=== PATIENT | female | born 1950 | race Caucasian/White ===

== ENCOUNTER 2017-04-17 10:29 | Outpatient (CLI) | payer MEDICARE, BC ==
[2017-04-17 11:52] LABS: Bilirubin Negative (Negative); Blood, Urine Small (Negative); Clarity CLEAR (Clear); Glucose, Urine (Dipstick) Negative (Negative); Leukocyte Negative (Negative); Nitrite Negative (Negative); Protein, Urine (Dipstick) Negative (Neg-Trace); Specific Gravity, Urine 1.009 (1.002-1.036); Urobilinogen 0.2 mg/dL (0.2-1.0)
[2017-04-17 11:54] LABS: Bacteria/HPF None Seen HPF (None Seen); Hyaline Casts/LPF 0-3 HYALINE CAST LPF (0-3 Hyaline); Squamous Epithelial None Seen HPF (0-3); WBC/HPF None Seen HPF (0-3)
[2017-04-17 11:57] LABS: Anion Gap 10 mmol/L (10-20); BUN (Urea Nitrogen) 21 mg/dL (9.8-20.1); Calc. Creatinine Clearance 0 mL/min (70-130); Calcium 9.3 mg/dL (7.8-10.44); Carbon Dioxide 31 mmol/L (23-31); Chloride 105 mmol/L (98-107); Estimated GFR-MDRD 79; Glucose 96 mg/dL (80-115); Potassium 4.6 mmol/L (3.5-5.1); Sodium 141 mmol/L (136-145)
--- NOTE | 2017-04-17 13:46 | ULT ---
BILATERAL RENAL ULTRASOUND: History: Urinary incontinence. FINDINGS: The right kidney measures 11.4 cm in length and the left kidney measures 9.5 cm. No hydronephrosis is seen on either side. There is a 1.3 cm cyst in the inferior pole of the left kidney. The pre void bl adder volume is 156 cc. No significant post void residual is seen in the urinary bladder. IMPRESSION: Left renal cyst. POS: [facility]
== END 2017-04-17 10:30 | disposition home or self-care (01) ==
LOC: ULT 10:29
PROVIDERS: ATTEND Urology
DX: N28.1 Cyst of kidney, acquired (principal); R31.29 Other microscopic hematuria; Z87.442 Personal history of urinary calculi
CPT/HCPCS: 36415; 76770; 80048; 81001; 87086; 88112

== ENCOUNTER 2017-11-06 12:50 | Outpatient (CLI) | payer MEDICARE, BC | END 2017-11-06 12:51 | disposition home or self-care (01) | LOC: BICMAMMO 12:50 | PROVIDERS: ATTEND Internal Medicine | DX: Z12.31 Encounter for screening mammogram for malignant neoplasm of breast (principal); R92.1 Mammographic calcification found on diagnostic imaging of breast; Z80.3 Family history of malignant neoplasm of breast | CPT/HCPCS: 77063; 77067 ==

== ENCOUNTER 2017-11-06 14:43 | Outpatient (CLI) | payer MEDICARE, BC | END 2017-11-06 14:44 | disposition home or self-care (01) | LOC: BICULT 14:43 | PROVIDERS: ATTEND Internal Medicine | DX: R92.8 Other abnormal and inconclusive findings on diagnostic imaging of breast (principal); N60.02 Solitary cyst of left breast ==

== ENCOUNTER 2017-11-12 13:35 | Outpatient (CLI) | payer MEDICARE, BC | END 2017-11-12 13:36 | disposition home or self-care (01) | LOC: BICMAMMO 13:35 | PROVIDERS: ATTEND Internal Medicine | DX: Z13.820 Encounter for screening for osteoporosis (principal); Z78.0 Asymptomatic menopausal state | CPT/HCPCS: 77080 ==

== ENCOUNTER 2017-11-12 14:21 | Outpatient (CLI) | payer MEDICARE, BC | END 2017-11-12 14:22 | disposition home or self-care (01) | LOC: BICRAD 14:21 | PROVIDERS: ATTEND Internal Medicine | DX: I10 Essential (primary) hypertension (principal); M54.9 Dorsalgia, unspecified; M47.896 Other spondylosis, lumbar region; M51.36 Other intervertebral disc degeneration, lumbar region; M47.894 Other spondylosis, thoracic region; M17.0 Bilateral primary osteoarthritis of knee; K30 Functional dyspepsia; E55.9 Vitamin D deficiency, unspecified; I48.91 Unspecified atrial fibrillation; M25.569 Pain in unspecified knee | CPT/HCPCS: 36415; 71046; 72072; 72100; 80053; 80061; 82306; 84439; 84443; 84550; 85025 ==

== ENCOUNTER 2018-08-25 14:56 | Outpatient (CLI) | payer MEDICARE, BC ==
--- NOTE | 2018-08-25 15:43 | RAD ---
RIGHT HIP TWO VIEWS: INDICATIONS: Pain. 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 No fracture or dislocation identified. IMPRESSION: No acute fracture or dislocation, right hip. POS: [facility]
--- NOTE | 2018-08-25 15:44 | RAD ---
LEFT HIP TWO VIEWS: INDICATIONS: Pain. FINDINGS: There is mild osteoarthritis of the left hip without fracture or dislocation. Phleboliths are seen o verlying the pelvis. 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 IMPRESSION: No acute fracture or dislocation, left hip. POS: [facility]
== END 2018-08-25 14:57 | disposition home or self-care (01) ==
LOC: BICRAD 14:56
PROVIDERS: ATTEND Internal Medicine
DX: M19.90 Unspecified osteoarthritis, unspecified site (principal)

== ENCOUNTER 2019-09-24 12:23 | Outpatient (CLI) | payer MEDICARE, BC ==
--- NOTE | 2019-09-24 13:14 | ULT ---
Renal ultrasound: 09/24/2019 COMPARISON: 04/17/2017 HISTORY: Renal cyst TECHNIQUE: Multiplanar grayscale sonographic imaging of the kidneys and urinary bladder. FINDINGS: Urinary bladder unremarkable. Right kidney measures 10.5 x 3.5 x 4.3 cm and demonstrates no mass, hydronephrosis, or stone. Left kidney measures 9.5 x 4.2 x 4.7 cm and demonstrates no hydronephrosis. There is a mid pole left renal cyst measuring 1.7 x 1.6 x 1.6 cm. IMPRESSION: Left renal cyst.
== END 2019-09-24 12:24 | disposition home or self-care (01) ==
LOC: BICULT 12:23
PROVIDERS: ATTEND Urology
DX: N28.1 Cyst of kidney, acquired (principal)
CPT/HCPCS: 76770

== ENCOUNTER 2020-10-13 | Outpatient (CLI) | payer MEDICARE, BC | END 2020-10-13 10:41 | disposition home or self-care (01) | DX: N28.1 Cyst of kidney, acquired (principal) ==

== ENCOUNTER 2021-01-15 21:34 | Inpatient (IN) | payer MEDICARE, BC ==
[2021-01-15] MEDS ORDERED: Ondansetron PF 4 MG/2 ML Vial ONE ×3 (22:02→23:15)
[2021-01-15] MEDS ORDERED: Morphine 4 MG/ML VIAL ONE ×2 (22:02→22:28)
[2021-01-15 22:15] LABS: #Basophils 0.1 thou/uL (0.0-0.2); #Lymphocytes 1.4 thou/uL (1.20-3.40); #Monocytes 0.7 thou/uL (0.11-0.59); %Basophils 0.9 % (0.0-1.0); %Eosinophils 0.4 % (0.0-10.0); %Lymphocytes 19.1 % (21.0-51.0); %Monocytes 9.3 % (0.0-10.0); %Neutrophils 70.3 % (42.0-75.0); Mean Corpuscular HGB CONC 33.3 g/dL (32.0-36.0); Mean Platelet Volume 7.7 fL (7.4-10.4); Platelet Count 288 thou/uL (130-400); RBC Distribution Width 11.2 % (11.5-14.5); Red Blood Cell (RBC) Count 4.65 mill/uL (4.20-5.40); White Blood Cell (WBC) Count 7.1 thou/uL (4.8-10.8)
[2021-01-15 22:24] LABS: Bacteria/HPF None Seen HPF (None Seen); Bilirubin Negative (Negative); Blood, Urine 1+ (Negative); Clarity Extra Turbid (Clear); Glucose, Urine (Dipstick) Normal (Negative); Ketone, Urine Negative (Negative); Leukocyte Negative Leu/uL (Negative); Nitrite Negative (Negative); Protein, Urine (Dipstick) Negative (Neg-Trace); Specific Gravity, Urine 1.016 (1.002-1.036); Squamous Epithelial 0-3 HPF (0-3); Urobilinogen Normal mg/dL (Less than 2); WBC/HPF 0-3 HPF (0-3)
[2021-01-15 22:35] LABS: ALT (SGPT) 13 U/L (8-55); AST (SGOT) 16 U/L (5-34); Albumin 4.2 g/dL (3.4-4.8); Alkaline Phosphatase 47 U/L (40-110); Anion Gap 13 mmol/L (10-20); BUN (Urea Nitrogen) 14 mg/dL (9.8-20.1); Bilirubin, Total 0.5 mg/dL (0.2-1.2); Calc. Creatinine Clearance 0 mL/min (70-130); Calcium 10.7 mg/dL (7.8-10.44); Carbon Dioxide 28 mmol/L (23-31); Chloride 100 mmol/L (98-107); Globulin 3.3 g/dL (2.4-3.5); Glucose 122 mg/dL (83-110); Lipase 11 U/L (8-78); Potassium 3.5 mmol/L (3.5-5.1); Protein, Total 7.5 g/dL (5.8-8.1); Sodium 137 mmol/L (136-145)
[2021-01-15] MEDS ORDERED: Promethazine HCl 25 MG/ML VIAL ONE (23:33)
[2021-01-15] MEDS ORDERED: Ketorolac Tromethamine 30 MG/ML VIAL ONE (23:40)
[2021-01-16 02:04] LABS: Prothrombin Time 13.7 sec (12.0-14.7)
[2021-01-16 02:05] LABS: PTT 29.2 sec (22.9-36.1)
[2021-01-16] MEDS ORDERED: Piperacillin/Tazobactam 4.5 GM in Sodium Chloride 0.9% 100 ML IVPB SCH (02:30)
[2021-01-16 05:45] VITALS: BMI 29.0
[2021-01-16] MEDS ORDERED: Morphine 4 MG/ML VIAL SLOW IVP PRN (05:52)
[2021-01-16] MEDS ORDERED: D5 1/2 NS w/20 mEq KCL 1,000 ML IV SCH (06:00)
[2021-01-16] MEDS ORDERED: Ondansetron PF 4 MG/2 ML Vial IVP PRN (06:00)
[2021-01-16] MEDS ORDERED: Ondansetron ODT 4 MG TAB SL PRN (06:00)
[2021-01-16] MEDS ORDERED: Piperacillin/Tazobactam 3.375 GM in Sodium Chloride 0.9% 100 ML IVPB SCH (08:00)
[2021-01-16] MEDS ORDERED: FLU VACC QS2021-22(65YR UP)/PF 240 MCG/0.7 ML SYRINGE IM ONE (09:00)
[2021-01-16 10:50] LABS: SARS-CoV-2 NAA Rapid Test Not Detected (NotDetected)
[2021-01-16] MEDS ORDERED: Lidocaine 1% w/Epinephrine 1:100K 20 ML VIAL ONE (11:41)
[2021-01-16] MEDS ORDERED: Bupivacaine 0.25% HCL 30 ML VIAL ONE (11:41)
[2021-01-16] MEDS ORDERED: ceFAZolin 2 GM/DEX 5% 100 ML BAG ONE (11:47)
[2021-01-16] MEDS ORDERED: Fentanyl 100 MCG/2 ML VIAL ONE ×2 (12:08→14:31)
[2021-01-16] MEDS ORDERED: Famotidine/PF 20 mg/2ml Vial ONE (12:08)
[2021-01-16] MEDS ORDERED: Glycopyrrolate 0.2 MG/ML 5 ML SYRINGE ONE (12:28)
[2021-01-16] MEDS ORDERED: Lidocaine 1% PF 5 ML VIAL ONE (12:28)
[2021-01-16] MEDS ORDERED: Rocuronium Bromide 10 MG/ML (10ML VIAL) ONE (12:28)
[2021-01-16] MEDS ORDERED: Ondansetron PF 4 MG/2 ML Vial ONE (12:28)
[2021-01-16] MEDS ORDERED: Dexamethasone 20 MG/5 ML VIAL ONE (12:28)
[2021-01-16] MEDS ORDERED: PROPOFOL 200 MG/20 ML VIAL ONE (12:28)
[2021-01-16] MEDS ORDERED: Ketorolac Tromethamine 30 MG/ML VIAL ONE (12:28)
[2021-01-16] MEDS ORDERED: PACU-Morphine 4MG/ML VIAL SLOW IVP PRN (12:57)
[2021-01-16] MEDS ORDERED: Promethazine HCl 25 MG/ML VIAL IM PRN (12:57)
[2021-01-16] MEDS ORDERED: Promethazine HCl 25 MG/ML VIAL IVPB PRN (12:57)
[2021-01-16] MEDS ORDERED: Meperidine HCl/PF 25 MG/ML VIAL SLOW IVP PRN (12:57)
[2021-01-16] MEDS ORDERED: traMADol HCl 50 MG TAB PO PRN (14:04)
[2021-01-16] MEDS ORDERED: Promethazine HCl 25 MG/ML VIAL ONE (15:01)
[2021-01-16] MEDS: traMADol HCl 50 MG TAB PO SCH ×2 (17:15→21:13)
[2021-01-16] MEDS: Acetaminophen 325 MG TAB PO SCH ×2 (17:15→21:15)
[2021-01-17] MEDS: Acetaminophen 325 MG TAB PO SCH (04:19)
[2021-01-17] MEDS: traMADol HCl 50 MG TAB PO SCH (04:20)
[2021-01-17 05:11] LABS: #Lymphocytes 0.7 thou/uL (1.20-3.40); #Monocytes 0.7 thou/uL (0.11-0.59); #Neutrophils 6.9 thou/uL (1.40-6.50); %Basophils 0.1 % (0.0-1.0); %Eosinophils 0.1 % (0.0-10.0); %Lymphocytes 8.7 % (21.0-51.0); %Monocytes 8.5 % (0.0-10.0); %Neutrophils 82.6 % (42.0-75.0); Hemoglobin 12.5 g/dL (12.0-16.0); Mean Corpuscular HGB CONC 33.3 g/dL (32.0-36.0); Mean Corpuscular Hemoglobin 30.6 pg (27.0-31.0); Mean Corpuscular Volume 91.9 fL (78.0-98.0); Mean Platelet Volume 7.9 fL (7.4-10.4); Platelet Count 254 thou/uL (130-400); RBC Distribution Width 11.1 % (11.5-14.5); Red Blood Cell (RBC) Count 4.07 mill/uL (4.20-5.40); White Blood Cell (WBC) Count 8.3 thou/uL (4.8-10.8)
[2021-01-17 05:36] LABS: ALT (SGPT) 23 U/L (8-55); AST (SGOT) 35 U/L (5-34); Albumin 3.5 g/dL (3.4-4.8); Alkaline Phosphatase 38 U/L (40-110); Anion Gap 13 mmol/L (10-20); BUN (Urea Nitrogen) 13 mg/dL (9.8-20.1); Bilirubin, Direct 0.2 mg/dL (0.1-0.3); Bilirubin, Total 0.5 mg/dL (0.2-1.2); Calc. Creatinine Clearance 83 mL/min (70-130); Calcium 8.7 mg/dL (7.8-10.44); Carbon Dioxide 25 mmol/L (23-31); Chloride 104 mmol/L (98-107); Glucose 119 mg/dL (83-110); Magnesium 1.8 mg/dL (1.6-2.6); Potassium 4.4 mmol/L (3.5-5.1); Protein, Total 6.1 g/dL (5.8-8.1); Sodium 138 mmol/L (136-145)
[2021-01-17 12:04] VITALS: BP 143/78; TEMP 97.5
== END 2021-01-17 14:32 | disposition home or self-care (01) | DRG 419 ==
LOC: ERS 21:34 → SURG B 01-16 02:47
PROVIDERS: ADMIT Surgery; ATTEND Surgery
PROC: 0FT44ZZ Resection of Gallbladder, Percutaneous Endoscopic Approach (ICD-10-PCS; principal; 2021-01-16)
DX: K80.00 Calculus of gallbladder with acute cholecystitis without obstruction (principal); Z20.822 Contact with and (suspected) exposure to COVID-19; Z23 Encounter for immunization; I10 Essential (primary) hypertension; I48.91 Unspecified atrial fibrillation; Z79.899 Other long term (current) drug therapy; Z88.1 Allergy status to other antibiotic agents; Z88.8 Allergy status to other drugs, medicaments and biological substances
CPT/HCPCS: 36415; 71045; 74177; 76705; 80048; 80053; 80076; 81003; 81015; 83690; 83735; 84100; 84484; 85025; 85610; 85730; 88304; 90471; 90662; 93005; G0008; J1100; J1885; J2270; J2405; J2543; J2550; J2704; J3010; J3480; J3490; S0020; S0028; U0002

== ENCOUNTER 2021-09-18 14:09 | Outpatient (CLI) | payer MEDICARE, BC | END 2021-09-18 14:10 | disposition home or self-care (01) | LOC: ULT 14:09 | PROVIDERS: ATTEND Urology | DX: N28.1 Cyst of kidney, acquired (principal); R31.29 Other microscopic hematuria; N39.41 Urge incontinence | CPT/HCPCS: 36415; 76770; 80048 ==

== ENCOUNTER 2022-01-26 18:22 | Observation (INO) | payer MEDICARE, BC ==
[2022-01-26] MEDS ORDERED: Diltiazem 125 MG/25 ML ONE (18:47)
[2022-01-26 18:48] LABS: #Eosinphils 0.1 thou/uL (0.0-0.7); #Lymphocytes 2.3 thou/uL (1.20-3.40); #Monocytes 0.7 thou/uL (0.11-0.59); #Neutrophils 1.9 thou/uL (1.40-6.50); %Basophils 0.5 % (0.0-1.0); %Eosinophils 1.4 % (0.0-10.0); %Lymphocytes 45.7 % (21.0-51.0); %Monocytes 13.7 % (0.0-10.0); %Neutrophils 38.7 % (42.0-75.0); Hemoglobin 14.3 g/dL (12.0-16.0); Mean Corpuscular Hemoglobin 29.5 pg (27.0-31.0); Mean Corpuscular Volume 89.3 fl (78.0-98.0); Mean Platelet Volume 7.3 fL (7.4-10.4); Platelet Count 310 10x3/uL (130-400); RBC Distribution Width 11.2 % (11.5-14.5); Red Blood Cell (RBC) Count 4.84 mill/uL (4.20-5.40); White Blood Cell (WBC) Count 4.9 10x3/uL (4.8-10.8)
[2022-01-26 19:08] LABS: ALT (SGPT) 31 U/L (8-55); AST (SGOT) 25 U/L (5-34); Albumin 4.2 g/dL (3.4-4.8); Alkaline Phosphatase 58 U/L (40-110); Anion Gap 13 mmol/L (10-20); BUN (Urea Nitrogen) 12 mg/dL (9.8-20.1); Bilirubin, Total 0.6 mg/dL (0.2-1.2); Calc. Creatinine Clearance 0 mL/min (70-130); Calcium 9.4 mg/dL (7.8-10.44); Carbon Dioxide 28 mmol/L (23-31); Chloride 101 mmol/L (98-107); Estimated GFR 80; Glucose 120 mg/dL (83-110); Lipase 9 U/L (8-78); Magnesium 2.1 mg/dL (1.6-2.6); Potassium 2.9 mmol/L (3.5-5.1); Protein, Total 7.2 g/dL (5.8-8.1); Sodium 139 mmol/L (136-145)
[2022-01-26] MEDS ORDERED: Potassium Chloride 20 MEQ TAB ONE ×2 (19:29→20:28)
[2022-01-26] MEDS ORDERED: Acetaminophen 325 MG TAB PO PRN (20:25)
[2022-01-26] MEDS ORDERED: Ondansetron PF 4 MG/2 ML Vial IVP PRN (20:25)
[2022-01-26 22:17] VITALS: BMI 28.2
[2022-01-26 23:17] LABS: Troponin I Less than 0.010 ng/mL (< 0.028)
[2022-01-27 01:38] LABS: Troponin I Less than 0.010 ng/mL (< 0.028)
[2022-01-27 05:01] LABS: #Basophils 0.1 thou/uL (0.0-0.2); #Eosinphils 0.1 thou/uL (0.0-0.7); #Lymphocytes 1.9 thou/uL (1.20-3.40); #Monocytes 0.5 thou/uL (0.11-0.59); #Neutrophils 1.7 thou/uL (1.40-6.50); %Basophils 1.2 % (0.0-1.0); %Eosinophils 3.4 % (0.0-10.0); %Monocytes 11.1 % (0.0-10.0); %Neutrophils 39.3 % (42.0-75.0); Hemoglobin 12.9 g/dL (12.0-16.0); Mean Corpuscular HGB CONC 33.1 g/dL (32.0-36.0); Mean Corpuscular Hemoglobin 29.8 pg (27.0-31.0); Platelet Count 282 10x3/uL (130-400); RBC Distribution Width 11.4 % (11.5-14.5); Red Blood Cell (RBC) Count 4.34 mill/uL (4.20-5.40); White Blood Cell (WBC) Count 4.2 10x3/uL (4.8-10.8)
[2022-01-27 05:11] LABS: Anion Gap 12 mmol/L (10-20); BUN (Urea Nitrogen) 12 mg/dL (9.8-20.1); Calc. Creatinine Clearance 86 mL/min (70-130); Calcium 9.1 mg/dL (7.8-10.44); Carbon Dioxide 27 mmol/L (23-31); Chloride 105 mmol/L (98-107); Estimated GFR 87; Glucose 95 mg/dL (83-110); Magnesium 2.1 mg/dL (1.6-2.6); Potassium 3.6 mmol/L (3.5-5.1); Sodium 140 mmol/L (136-145)
[2022-01-27] MEDS ORDERED: Aspirin 81 mg Enteric Coated Tablet PO SCH (09:00)
[2022-01-27] MEDS ORDERED: Enoxaparin Sodium 40 MG/0.4 ML SYRINGE SC SCH (09:00)
[2022-01-27] MEDS ORDERED: Aspirin Chewable 81 MG TAB ONE (09:24)
[2022-01-27] MEDS ORDERED: Enoxaparin Sodium 40 MG/0.4 ML SYRINGE ONE (09:24)
[2022-01-27] MEDS ORDERED: Apixaban 5 MG TAB PO SCH (21:00)
[2022-01-28] MEDS ORDERED: Chlorthalidone 25 MG TAB PO SCH (09:00)
[2022-01-28] MEDS ORDERED: Losartan 25 MG TAB PO SCH (09:00)
== END 2022-01-27 13:20 | disposition home or self-care (01) ==
LOC: ERS 18:22 → ERHOLD 20:12
PROVIDERS: ADMIT Nurse Practitioner Acute Care; ATTEND Nurse Practitioner Acute Care
DX: I48.91 Unspecified atrial fibrillation (principal); E87.6 Hypokalemia; I10 Essential (primary) hypertension; R19.7 Diarrhea, unspecified; M19.90 Unspecified osteoarthritis, unspecified site; Z79.899 Other long term (current) drug therapy; Z88.1 Allergy status to other antibiotic agents; Z88.8 Allergy status to other drugs, medicaments and biological substances; Z91.030 Bee allergy status
CPT/HCPCS: 71045; 80048; 80053; 83690; 83735 ×2; 83880; 84484 ×3; 85025 ×2; 93005; 94760; G0378 ×2; 36415; J1650

== ENCOUNTER 2022-10-04 14:18 | Outpatient (CLI) | payer MEDICARE, BC | END 2022-10-04 14:19 | disposition home or self-care (01) | LOC: BICMAMMO 14:18 | PROVIDERS: ATTEND Internal Medicine | DX: Z12.31 Encounter for screening mammogram for malignant neoplasm of breast (principal); Z13.820 Encounter for screening for osteoporosis; Z80.3 Family history of malignant neoplasm of breast; Z91.89 Other specified personal risk factors, not elsewhere classified | CPT/HCPCS: 77063; 77067; 77080 ==

== ENCOUNTER 2022-10-24 14:43 | Outpatient (CLI) | payer MEDICARE, BC | END 2022-10-24 14:44 | disposition home or self-care (01) | LOC: ULT 14:43 | PROVIDERS: ATTEND Urology | DX: N28.1 Cyst of kidney, acquired (principal); N28.89 Other specified disorders of kidney and ureter | CPT/HCPCS: 76770 ==

== ENCOUNTER 2022-11-12 10:28 | Outpatient (CLI) | payer MEDICARE, BC ==
[~2022-11-12 10:28] MED LIST: ISOVUE-370 76% MDV (1 ML CHARGE) ONE
== END 2022-11-12 10:29 | disposition home or self-care (01) ==
LOC: BICCT 10:28
PROVIDERS: ATTEND Urology
DX: N28.1 Cyst of kidney, acquired (principal); N28.89 Other specified disorders of kidney and ureter
CPT/HCPCS: 74170; 82565

== ENCOUNTER 2024-10-09 09:56 | Emergency (ER) | payer MEDICARE, BC ==
[2024-10-09 10:24] LABS: #Basophils 0.06 10x3/uL (0.0-0.2); #Eosinophils 0.05 10x3/uL (0.0-0.7); #Monocytes 0.73 10x3/uL (0.11-0.59); #Neutrophils 4.66 10x3/uL (1.40-6.50); %Basophils 0.9 % (0.0-1.0); %Eosinophils 0.7 % (0.0-10.0); %Lymphocytes 17.8 % (21.0-51.0); %Monocytes 10.9 % (0.0-10.0); %Neutrophils 69.6 % (42.0-75.0); Hematocrit 44.4 % (36.0-47.0); Hemoglobin 14.7 g/dL (12.0-16.0); Mean Corpuscular Hemoglobin 28.7 pg (27.0-31.0); Mean Corpuscular Volume 86.7 fL (78.0-98.0); Platelet Count 333 10x3/uL (130-400); Red Blood Cell (RBC) Count 5.12 mill/uL (4.20-5.40); White Blood Cell (WBC) Count 6.70 10x3/uL (4.8-10.8)
[2024-10-09 10:46] LABS: ALT (SGPT) 15 U/L (Less than 34); AST (SGOT) 24 U/L (11-34); Albumin 4.5 g/dL (3.1-4.5); Alkaline Phosphatase 55 U/L (40-110); Anion Gap 14 mmol/L (10-20); BUN (Urea Nitrogen) 14 mg/dL (9.8-20.1); Bilirubin, Total 0.6 mg/dL (0.3-1.2); Calc. Creatinine Clearance 0 mL/min (70-130); Calcium 9.8 mg/dL (7.8-10.44); Carbon Dioxide 29 mmol/L (23-31); Chloride 99 mmol/L (98-107); Globulin 3.7 g/dL (2.4-3.5); Glucose 98 mg/dL (83-110); Potassium 3.9 mmol/L (3.5-5.1); Sodium 138 mmol/L (136-145)
[2024-10-09] MEDS ORDERED: Droperidol 5 MG/2 ML VIAL ONE (11:32)
[2024-10-09] MEDS ORDERED: Ketorolac Tromethamine 30 MG (1 mL) VIAL ONE (12:13)
== END 2024-10-09 12:18 | disposition home or self-care (01) ==
LOC: ERS 09:56
DX: I10 Essential (primary) hypertension (principal); R51.9 Headache, unspecified; I48.91 Unspecified atrial fibrillation; R29.700 NIHSS score 0; Z79.01 Long term (current) use of anticoagulants
CPT/HCPCS: 70450; 71045; 80053; 84484; 85025; 93005; 96374; 99284; J1790; J1885

== ENCOUNTER 2024-10-12 10:26 | Outpatient (CLI) | payer MEDICARE, BC | END 2024-10-12 10:27 | disposition home or self-care (01) | LOC: BICMAMMO 10:26 | PROVIDERS: ATTEND Internal Medicine | DX: Z12.31 Encounter for screening mammogram for malignant neoplasm of breast (principal); Z80.3 Family history of malignant neoplasm of breast; Z91.89 Other specified personal risk factors, not elsewhere classified | CPT/HCPCS: 77063; 77067 ==